=== PATIENT | female | born 1970 | race Two or more races ===

== ENCOUNTER → 2021-03-22 | Outpatient (CLI) | payer BC ==
--- NOTE | 2021-03-22 14:11 | KCIC ---
EXAM: ULTRASOUND ABDOMEN LIMITED CLINICAL HISTORY: Palpable lower abdominal wall mass. COMPARISON: None available. TECHNIQUE: Limited ultrasound examination of the lower anterior abdominal wall was performed FINDINGS: There is no abdominal hernia, soft tissue mass, fluid collection, or other abnormality in the area of concern in the lower central abdominal wall. Normal subcutaneous soft tissue in the abdominal wall m uscles. IMPRESSION: No abnormality in the area of concern in the anterior abdominal wall. Electronically signed by: Gisele Mayberry MD (03/22/2021 2:09 PM) [id number]
== END ==
LOC: KCIC US 10:00
PROVIDERS: ATTEND Family Medicine
DX: R22.2 Localized swelling, mass and lump, trunk (principal)
CPT/HCPCS: 76705

== ENCOUNTER → 2021-04-26 | Outpatient (CLI) | payer BC ==
--- NOTE | 2021-04-26 14:36 | KCIC ---
EXAM: Pelvic sonogram. HISTORY: Pain. TECHNIQUE: Sonographic imaging of the pelvis was performed. COMPARISON: None. FINDINGS: The uterus measures 14.6 x 7.1 x 5.7 cm. There are small uterine fibroids, the largest of w hich measures 1.3 cm. The endometrial stripe measures 3 mm in thickness. The ovaries are normal in si ze and demonstrate normal blood flow. There is a 2.6 cm simple appearing right ovarian cyst. There is no pelvic free fluid. IMPRESSION: 1. 2.6 cm simple appearing right ovarian cyst. If this is a premenopausal patient, follow-up in 3 mon ths is recommended to confirm resolution. If the patient is postmenopausal, correlation with a CA-125 tumor marker level may be useful to exclude a cystic neoplasm. 2. Enlarged uterus containing multiple small fibroids. 3. Normal endometrial stripe. Electronically signed by: Yue Alvarez MD (04/26/2021 2:33 PM) [id number]
== END ==
LOC: KCIC US 13:17
PROVIDERS: ATTEND Family Medicine
DX: N85.2 Hypertrophy of uterus (principal); D25.9 Leiomyoma of uterus, unspecified
CPT/HCPCS: 76856